=== PATIENT | female | born 1975 ===

== ENCOUNTER 2024-04-21 23:55 | Emergency (ER) | payer OTHER, SELFPAY ==
[2024-04-21 23:58] VITALS: BMI 36.4
[2024-04-21 23:59] VITALS: BP 121/71
[2024-04-22 00:12] LABS: % Basophils 0.5 % (0-2); % Eosinophils 2.8 % (0-6); % Immature Granulocytes 0.5 % (0-0.5); % Lymphocytes 44.3 % (20.5-51.1); % Monocytes 8.1 % (1.7-9.3); % Neutrophils 43.8 % (42.2-75.2); Absolute Eosinophils 0.2 10^3/uL (0-0.7); Absolute Lymphocytes 3.8 10^3/uL (1.2-3.4); Absolute Monocytes 0.7 10^3/uL (0.1-0.6); Absolute Neutrophils 3.8 10^3/uL (1.4-6.5); Hematocrit 34.7 % (37.0-47.0); Hemoglobin 11.9 g/dL (12.0-16.0); Mean Corp Hgb Conc. 34.3 g/dL (33.0-37.0); Mean Corpuscular Hgb 28.7 pg (27.0-31.0); Mean Corpuscular Volume 83.6 fL (81.0-99.0); Mean Platelet Volume 9.4 fL (7.4-10.4); Nucleated Red Blood Cells % 0 %; Platelet Count 336 10^3/uL (130-400); Red Blood Cell Count 4.15 10^6/uL (4.20-5.40); Red Cell Dist. Width 13.1 % (11.5-14.5); White Blood Cell Count 8.6 10^3/uL (4.8-10.8)
[2024-04-22 00:28] LABS: ALT (SGPT) 122 U/L (0-35); AST (SGOT) 63 U/L (14-36); Albumin 4.4 g/dl (3.5-5.0); Alkaline Phosphatase 65 U/L (38-126); Blood Urea Nitrogen 15 mg/dl (7-17); Calcium 9.3 mg/dl (8.4-10.2); Carbon Dioxide 26 mmol/L (22-30); Chloride 107 mmol/L (98-107); Estimated Creatinine Clearance > 125 ml/min; Glucose 131 mg/dl (70-99); Potassium 3.8 mmol/L (3.5-5.1); Sodium 143 mmol/L (135-145); Total Bilirubin 0.5 mg/dl (0.2-1.3); Total Protein 7.1 g/dl (6.3-8.2); eGFR > 60.00
[2024-04-22 00:41] LABS: Troponin I < 0.012 ng/ml
[2024-04-22 00:58] LABS: HCG, Serum Qualitative Screen Negative
[2024-04-22 01:00] VITALS: BP 101/76
--- NOTE | 2024-04-22 01:07 | ED.GENMED ---
History of Present Illness
<MARCIA Castaneda - Last Filed: 04/22/24 01:56>
General
Chief Complaint: Chest Pain
Source: patient, family (son) and other (friend)
Exam Limitations: none
Time Seen by Provider: 04/22/24 01:05
Travel History
Have you had any contact with someone who has COVID-19?: No
Do you have any symptoms of coronavirus? Fever > 100 degrees, chills, cough, shortness of breath, sore throat, loss of taste or smell, muscle aches, or headache?: No
History of Present Illness
History of Present Illness:
48 year old female with hx of thyroid disorder, NIDDM, tachycardia on metoprolol who BIBA with chest pain that began 1 hour ago. Pt was sitting in her car when she had sudden onset of 9/10 midsternal squeezing/tightness chest pain that radiates
towards L chest and to medial upper L arm and L upper back. States the pain in her arm feels like soreness. Pain worsened with deep breathing and movement. She reports associated nausea and chills. Pt reports she had similar symptoms last week. She
had chest pain that came on while she was driving to her friend's house. When she got there, her friend gave her a 'sedative' medication that relieved her pain. Today she has similar symptoms without relief, prompting her to call EMS. En route, EMS
administered Aspirin and 1 dose of SL NTG without relief of her pain. Currently, her pain is 4/10. She reports mild head ache. Denies diaphoresis, vomiting, fevers/chills, palpitations, abdominal pain, leg pain, leg swelling, cough, runny nose. Of
note, pt reports she 4 days of diarrhea a couple of days ago which has resolved. Pt is non-Indian speaking and friend and son are present and able to translate. Pt sees a bryologist Dr. Napier for her tachycardia. She takes Metoprolol daily and
Propranolol PRN if her heart spikes. She is on Janumet, Farxiga, Ozempic for her DM.
Past History
<Lavellgladis Garber, [facility] - Last Filed: 04/22/24 01:56>
Past History
ED Past Medical History: None
ED Past Surgical History: None
Social History
Tobacco: Non-smoker
Review of Systems
<Lavellgladis Garber [place] - Last Filed: 04/22/24 01:56>
Review of Systems
Allergies reviewed?: Yes
All Other Systems: ROS reviewed and negative except as documented in HPI and ROS
Constitutional: Reports chills
EENT: Reports no symptoms
Respiratory: Reports trouble breathing
Cardiac: Reports chest pain
ABD/GI: Reports nausea
: Reports no symptoms
Musculoskeletal: Reports no symptoms
Skin: Reports no symptoms
Neurological: Reports headache
Endocrine: Reports no symptoms
Hematologic/Lymphatic: Reports no symptoms
Psychiatric: Reports no symptoms
Phy Exam
<Lavellgladis Garber [place] - Last Filed: 04/22/24 01:56>
General Physical Exam
General Presentation: no apparent distress and other (uncomfortable appearing)
General age: appears stated age
General Skin: warm and dry
General Habitus: obese
General Mental: alert
General Hydration: appears well hydrated
Cardiovascular Exam
Cardiovascular Exam: regular rate/rhythm, no edema, no gallop, no murmur and normal peripheral pulses
Pulmonary Exam
Pulmonary Exam: lungs clear, no respiratory distress, no rales, no crackles, no rhonchi and other (reproducible chest tenderness to midsternum between fifth and sixth ribs)
Gastrointestinal Exam
Gastrointestinal Exam: non tender, soft, no pulsatile mass and non distended
Neurological Exam
Neurological Exam: alert and oriented x3
Musculoskeletal Exam
Musculoskeletal Exam: other (L mid-trapezius, above the scapula, tenderness to palpation)
Skin Exam
Skin Exam: normal color and warm/dry
Psychiatric Exam
Psychiatric Exam: normal mood/affect
Scores
<Ron Wong DO - Last Filed: 04/22/24 04:00>
Heart Score for Chest Pain Patients
STEMI patient?: No
History: Slightly or Non-Suspicious
ECG: Normal
Age: >45 - <65 years
Risk Factors: 1 or 2 Risk Factors
Troponin: </= Normal Limit
Heart Score for Chest Pain Patients: 2
Heart Score Risk: 2.5% MACE over next 6 weeks
Course
<MARCIA Castaneda - Last Filed: 04/22/24 01:56>
Orders/Labs/Results
Orders:
Orders
04/21/24 23:56
Electrocardiogram (*1) Urgent
Reason for Study: Chest Pain
Cardiac Monitoring- Treatment ONCE
EKG- Treatment ONCE
IV Insert/Care/Rem.- Treatment PRN
Complete Blood Count/With Diff Urgent
Comprehensive Metabolic Panel Urgent
Troponin I Urgent
O2 Therapy [RESP] Urgent
Titrate/Wean O2 to maintain O2 sat greater than (%): 90
Special Instructions: Maintain sats >/=90%
Pulse Ox/spot Check [RESP] Urgent
Quantity: 1
Special Instructions: ON ROOM AIR
04/22/24 00:07
HCG, Serum Qualitative Screen Urgent
Comment: ADD ON
04/22/24 00:31
Add On- LAB Urgent
Tests Added?: hcg qualitative
04/22/24 01:50
Acetaminophen [Tylenol] 650 mg PO NOW STA
CR Chest - 2 Views Urgent
Comment:
Reason For Exam: chest pain
04/22/24 02:51
Electrocardiogram (*1) Urgent
Reason for Study: Chest Pain
04/22/24 02:52
EKG- Treatment ONCE
04/22/24 02:54
Troponin I Urgent
Abnormal Lab Results
04/22/24
00:07
RBC 4.15 L 10^6/uL
(4.20-5.40)
Hgb 11.9 L g/dL
(12.0-16.0)
Hct 34.7 L %
(37.0-47.0)
Absolute Lymphs (auto) 3.8 H 10^3/uL
(1.2-3.4)
Absolute Monos (auto) 0.7 H 10^3/uL
(0.1-0.6)
Glucose 131 H mg/dl
(70-99)
AST 63 H U/L
(14-36)
ALT 122 H U/L
(0-35)
04/22/24 00:07
04/22/24 00:07
Vital Signs
Initial and Last Documented VS:
Initial Vital Signs
Temp Pulse Resp BP Pulse Ox
98.1 F 76 19 121/71 98
04/21/24 23:59 04/21/24 23:59 04/21/24 23:59 04/21/24 23:59 04/21/24 23:59
Last Documented Vital Signs
Temp Pulse Resp BP Pulse Ox
98.1 F 81 17 101/83 97
04/21/24 23:59 04/22/24 03:00 04/22/24 03:00 04/22/24 03:00 04/22/24 03:00
<Ron Wong, - Last Filed: 04/22/24 04:00>
Orders/Labs/Results
Orders:
Orders
04/21/24 23:56
Electrocardiogram (*1) Urgent
Reason for Study: Chest Pain
Cardiac Monitoring- Treatment ONCE
EKG- Treatment ONCE
IV Insert/Care/Rem.- Treatment PRN
Complete Blood Count/With Diff Urgent
Comprehensive Metabolic Panel Urgent
Troponin I Urgent
O2 Therapy [RESP] Urgent
Titrate/Wean O2 to maintain O2 sat greater than (%): 90
Special Instructions: Maintain sats >/=90%
Pulse Ox/spot Check [RESP] Urgent
Quantity: 1
Special Instructions: ON ROOM AIR
04/22/24 00:07
HCG, Serum Qualitative Screen Urgent
Comment: ADD ON
04/22/24 00:31
Add On- LAB Urgent
Tests Added?: hcg qualitative
04/22/24 01:50
Acetaminophen [Tylenol] 650 mg PO NOW STA
CR Chest - 2 Views Urgent
Comment:
Reason For Exam: chest pain
04/22/24 02:51
Electrocardiogram (*1) Urgent
Reason for Study: Chest Pain
04/22/24 02:52
EKG- Treatment ONCE
04/22/24 02:54
Troponin I Urgent
Abnormal Lab Results
04/22/24
00:07
RBC 4.15 L 10^6/uL
(4.20-5.40)
Hgb 11.9 L g/dL
(12.0-16.0)
Hct 34.7 L %
(37.0-47.0)
Absolute Lymphs (auto) 3.8 H 10^3/uL
(1.2-3.4)
Absolute Monos (auto) 0.7 H 10^3/uL
(0.1-0.6)
Glucose 131 H mg/dl
(70-99)
AST 63 H U/L
(14-36)
ALT 122 H U/L
(0-35)
04/22/24 00:07
04/22/24 00:07
Vital Signs
Initial and Last Documented VS:
Initial Vital Signs
Temp Pulse Resp BP Pulse Ox
98.1 F 76 19 121/71 98
04/21/24 23:59 04/21/24 23:59 04/21/24 23:59 04/21/24 23:59 04/21/24 23:59
Last Documented Vital Signs
Temp Pulse Resp BP Pulse Ox
98.1 F 81 17 101/83 97
04/21/24 23:59 04/22/24 03:00 04/22/24 03:00 04/22/24 03:00 04/22/24 03:00
<MARCIA Castaneda - Last Filed: 04/22/24 01:56>
MDM/Problems Addressed
Differential Diagnosis Includes:
costochondritis due to viral etiology, ND, muscular strain
MDM/Problems Addressed:
48 year old female who presents with midsternal chest pain that radiates to L chest, L arm, L back that began 1 hour [employer].
Chronic conditions affecting care: DM and Other
<MARCIA Castaneda - Last Filed: 04/22/24 01:56>
*Critical Care Note
Total Time (30-74mins, 75-104mins- exclusive of procedures): Not Applicable
<Ron Wong DO - Last Filed: 04/22/24 04:00>
*Radiology
Radiology exam reviewed: preliminary read by ED provider (Chest x-ray no acute findings)
*Pulse Oximetry
Patient hypoxic: no
*EKG
Interpreted by ED Provider?: Yes
EKG Intrepretation Date: 04/22/24
EKG Intrepretation Time: 02:59
Interpretation: abnormal
Comparison EKG: no changes
Heart Rate: 80
Rate: normal
Rhythm: sinus
[place]: normal axis
Interval: normal interval
QRS Pattern: normal QRS
Ischemia: no ischemia
*Spot Cleaner Interpretation
Rate: normal
Interpretation: normal
Heart Rate: 76
Rhythm: sinus
Data Reviewed
Review of Other/Old Records Reveals: Testing (stress echo normal)
Source: records
<Ron Wong, - Last Filed: 04/22/24 04:00>
Patient Management
Escalation/DeEscalation of care consider admission/obs:
admit not indicated
ED Attending Note
<ST LeonelPA - Last Filed: 04/22/24 01:56>
-
Portions of this chart may have been created with voice recognition software.� Occasional wrong word or��sound alike� substitutions may have occurred due to the inherent limitations of voice recognition software.
<Ron Wong, - Last Filed: 04/22/24 04:00>
ED Attending Note
Patient seen and examined by attending physician: Yes
I performed a history and physical exam of patient and discussed management with resident, I reviewed resident's note and agree with documented findings and plan of care.: Yes
ED Attending Note:
I have reviewed and agree with history and treatment plan by Juan Garber. My exam revealed
Physical Exam
General: no apparent distress, not acutely ill
Neck: supple. no meningeal signs. normal posterior pharynx
Heart: s1/s2 regular rate and rhythm, no murmur. equal radial
pulses.
HEENT: Pupils equal round reactive to light, EOMI
Lungs: no acute respiratory distress. clear bilaterally chest wall tender to palpation, reproducing pain
Abdomen: normal bowel sounds. not tender. no CVAT
Neuro: alert and oriented. no focal neurological deficits cranial nerves II through XII intact
Skin: no rash
Psychiatric: well kept. interactive and cooperative
Extremities: no edema. no calf tenderness. negative homans. good distal pulses
Discharge Plan
Departure
Patient Disposition: Home (Routine Discharge)
Date of Disposition: 04/22/24
Time of Disposition: 03:58
Patient with high blood pressure during this ER visit?: No
Condition: Good
Discharge Problem:
Acute chest wall pain
Instructions: Chest Pain PCP Follow Up
Prescriptions:
No Action
Unobtainable
0
Referrals:
NONE,* [Family Provider] -
Activity Restrictions/Additional Instructions:
Follow up with primary care in 3-5 days. Return for any concerns.
Interventions
Interventions:
*Risk Screen - Suicide Last Done: 04/21/24 23:59
*General Assessment Last Done: 04/21/24 23:59
*Neglect/Abuse Screening Last Done: 04/21/24 23:59
ED- Fall Risk Assessment Last Done: 04/22/24 00:10
*ED COVID-19 Vaccine History Last Done: 04/21/24 23:59
ED- Cardiac Assessment Last Done: 04/22/24 00:17
Discharge Date and Time
Print Language: [place]
[2024-04-22] MEDS: TYLENOL 650 MG PO (02:04)
[2024-04-22 02:07] VITALS: BP 95/64
[2024-04-22 03:00] VITALS: BP 101/83
[2024-04-22 03:38] LABS: Troponin I < 0.012 ng/ml
[2024-04-22 04:00] VITALS: BP 110/79
== END 2024-04-22 04:14 | disposition home or self-care (01) ==
LOC: EMR 23:55
PROVIDERS: Emergency Medicine; EMERGENCY PHYSICIAN Emergency Medicine
DX: R07.89 Other chest pain (principal); M79.602 Pain in left arm; M54.9 Dorsalgia, unspecified; R11.0 Nausea; R68.83 Chills (without fever); R51.9 Headache, unspecified; R00.0 Tachycardia, unspecified; E07.9 Disorder of thyroid, unspecified; E11.9 Type 2 diabetes mellitus without complications; Z79.899 Other long term (current) drug therapy
CPT/HCPCS: 99285; 94760; 71046; 80053; 84484; 84703; 85025; 93005